=== PATIENT | female | born 1985 | race Caucasian/White ===

== ENCOUNTER 2019-03-31 20:20 | Emergency (ER) | payer BC, OTHER ==
[~2019-03-31] VITALS: Ht 170.2 cm; Wt 127.0 kg
[2019-03-31] MEDS ORDERED: LIDOCAINE 1% INJ 20 ML 20 ML VIAL ONE ×2 (20:23→20:24)
--- NOTE | 2019-03-31 20:23 | ED General ---
General Stated Complaint: LT HAND LAC History of Present Illness Date Seen by Provider: Mar 31, 2019 Time Seen by Provider: 20:23 Initial Comments Patient was doing some yard work when a knife slipped while she was cutting a wire sustained a laceration on the dorsal aspect of her left hand. Tetanus is unclear so was updated here. She has full function of her hand with no weakness and she also denies any numbness or tingling. Allergies and Home Medications Allergies Coded Allergies: No Known Drug Allergies (Unverified , 03/31/19) Patient Home Medication List Home Medication List Reviewed: Yes Review of Systems Review of Systems Constitutional: no symptoms reported Skin: other (laceration) All Other Systems Reviewed Negative Unless Noted: Yes Physical Exam Vital Signs Vital Signs - First Documented 03/31/19 20:31 Temp 98.8 Pulse 67 Resp 16 B/P (MAP) 151/84 (106) Pulse Ox 98 O2 Delivery Room Air Capillary Refill : Height, Weight, BMI Height: '" Weight: lbs. oz. kg; BMI Method: General Appearance: No Apparent Distress, WD/WN Extremity: Normal Capillary Refill, Normal Inspection, Normal Range of Motion, Other (5 out of 5 strength in thumb and index finger flexion and extension with no weakness.) Neurologic/Psychiatric: Alert (distal sensation is intact with no numbness), Oriented x3, No Motor/Sensory Deficits Skin: Normal Color, Warm/Dry, Other (approximate 2.5 cm linear laceration over the dorsal aspect of her hand and approximate mid metacarpal on index finger. Wound examined bloodless field and there is no deeper structures such as tendon visualized and there is no obvious foreign bodies.) Procedures/Interventions Wound Location: Upper Extremities Other Wound Location L hand Wound Length (cm): 2.5 Wound's Depth, Shape: superficial, linear Wound Explored: no foreign body removed Irrigated w/ Saline (ccs): 1000 Betadine Prep?: Yes Anesthesia: 1% Lidocaine Volume Anesthetic (ccs): 3 Wound Debrided: minimal Suture: Ethlion Suture Size: 5-0 Number of Sutures: 3 Layer Closure?: 1 Sterile Dressing Applied?: Yes Progress Wound prepped and draped in normal sterile fashion and was anesthetized with 3 cc of 1% lidocaine and then the wound was copiously irrigated and cleansed with chlorhexidine. 3 5-0 nylon sutures were placed with adequate closure and no immediate complications noted. Progress/Results/Core Measures Suspected Sepsis SIRS Temperature: Pulse: Respiratory Rate: Blood Pressure / Mean: Results/Orders My Orders Orders - JUAN CHRISTY DO Lidocaine 1% Inj 20 Ml (Xylocaine 1% Inj (03/31/19 20:30) Dipht,Pertuss(Acell),Tet Adult (Boostrix (03/31/19 20:30) Lidocaine 1% Inj 20 Ml (Xylocaine 1% Inj (03/31/19 20:23) Lidocaine 1% Inj 20 Ml (Xylocaine 1% Inj (03/31/19 20:24) Medications Given in ED Current Medications Medications Dose Ordered Sig/Ling Route Start Time Stop Time Status Last Admin Dose Admin Diphtheria/ Tetanus/Acell Pertussis 0.5 ml ONCE ONCE IM 03/31/19 20:30 03/31/19 20:31 DC 03/31/19 20:43 0.5 ML Lidocaine HCl 20 ml ONCE ONCE INJ 03/31/19 20:30 03/31/19 20:31 DC 03/31/19 20:41 20 ML Vital Signs/I&O 03/31/19 20:31 Temp 98.8 Pulse 67 Resp 16 B/P (MAP) 151/84 (106) Pulse Ox 98 O2 Delivery Room Air Capillary Refill : Progress Note : Progress Note Wound closed with no difficulty. Patient told signs to look for for infection and when to return. She was told to have the sutures removed in 7 days and come back sooner with any concerns. Patient aware and agreeable with plan and verbal ized understanding of the above instructions. Departure Impression Primary Impression: Hand laceration Qualified Codes: S61.412A - Laceration without foreign body of left hand, initial encounter Disposition: 01 HOME, SELF-CARE Condition: Stable JUAN CHRISTY DO Mar 31, 2019 20:23
--- OUTSIDE RECORDS SUMMARY | 2019-03-31 20:26 | XMS REPORT | Continuity of Care Document ---
Author Organization Unknown Address Unknown Allergies There is no data. Medications There is no data. Problems Date Dx Coded Attending Type Code Diagnosis Diagnosed By 02/02/2014 KARINA DDS, LISSETH B V72.2 DENTAL EXAMINATION 02/02/2014 KARINA DDS, LISSETH B V72.2 DENTAL EXAMINATION 02/02/2014 KARINA DDS, LISSETH B V72.2 DENTAL EXAMINATION 02/02/2014 KARINA DDS, LISSETH B V72.2 DENTAL EXAMINATION 03/24/2014 KARINA DDS, LISSETH B V72.2 DENTAL EXAMINATION 03/24/2014 KARINA DDS, LISSETH B V72.2 DENTAL EXAMINATION 03/24/2014 KARINA DDS, LISSETH B V72.2 DENTAL EXAMINATION 04/13/2014 KARINA DDS, LISSETH B V72.2 DENTAL EXAMINATION 04/13/2014 KARINA DDS, LISSETH B V72.2 DENTAL EXAMINATION 04/13/2014 KARINA DDS, LISSETH B V72.2 DENTAL EXAMINATION 05/13/2014 KARINA DDS, LISSETH B V72.2 DENTAL EXAMINATION 05/13/2014 KARINA DDS, LISSETH B V72.2 DENTAL EXAMINATION 06/09/2014 KARINA DDS, LISSETH B V72.2 DENTAL EXAMINATION Procedures Code Description [place] D0140 LIMIT ORAL EVAL PROBLM FOCUS 02/02/2014 D0220 INTRAORAL PERIAPICAL FIRST F 02/02/2014 D0230 INTRAORAL PERIAPICAL EA ADD 02/02/2014 D7140 EXTRACTION ERUPTED TOOTH/EXR 02/02/2014 D0099 NO CHARGE/FOLLOW UP 04/13/2014 D3320 END THXPY, BICUSPID TOOTH 05/13/2014 D2391 POST 1 SRFC RESINBASED CMPST 06/09/2014 D2392 POST 2 SRFC RESINBASED CMPST 06/09/2014 Results There is no data. Encounters ACCT No. Visit Date/Time Discharge Status Pt. Type Provider Facility Loc./Unit Complaint [id number] 06/09/2014 10:36:00 06/09/2014 23:59:59 [facility] LISSETH COLLINS DDS [id number] 05/13/2014 00:00:00 05/13/2014 23:59:59 [facility] LISSETH COLLINS DDS [id number] 04/13/2014 11:25:00 04/13/2014 23:59:59 [facility] Outpatient LISSETH COLLINS DDS [id number] 02/02/2014 09:53:00 02/02/2014 23:59:59 [facility] LISSETH COLLINS DDS
--- OUTSIDE RECORDS SUMMARY | 2019-03-31 20:26 | XMS REPORT ---
Author Author Migration, Doctor Organization [facility] Address Unknown Phone Unavailable Care Team Providers Care Psychiatry Adult Physician Name Role Phone Migration, Doctor Unavailable Unavailable PROBLEMS Type Condition ICD9-CM Code BCQ46-LP Code Onset Dates Condition Status SNOMED Code Problem Dental examination V72.2 Active [id number] ALLERGIES No Information ENCOUNTERS Encounter Location Date Diagnosis [facility] [address] [place] [address] Nov, [facility] [address] [place] [phone] Apr, Dental examination V72.2 [facility] [address] [place] [phone] Mar, Dental examination V72.2 [facility] [address] [place] [phone] Mar, Dental examination V72.2 [facility] [id number] [place] [phone] Jan, [facility] [id number] [place] [phone] Jan, [facility] [address] [place] [phone] Jun, [facility] [id number] [place] [phone] Jun, [facility] [id number] [place] [phone] May, [facility] [id number] [place] [phone] May, [facility] [address] [place] [address] Apr, [facility] [address] [facility] [id number] [place] [address] Apr, [facility] [address] [facility] [id number], [place] [address] Mar, [facility] [address] [facility] [id number], [place] [address] Jan, [facility] [address] [facility] [id number], [place] [address] Jan, IMMUNIZATIONS No Known Immunizations SOCIAL HISTORY Never Assessed REASON FOR VISIT EMR-[facility] PLAN OF CARE VITAL SIGNS MEDICATIONS Medication Instructions Dosage Frequency Start Date End Date Duration Status [place] 5-325 mg take 1 tablet by Oral route every 4-6 hours as needed for pain Jan, Active Diovan by oral route Jan, Active RESULTS No Results PROCEDURES No Known procedures INSTRUCTIONS MEDICATIONS ADMINISTERED No Known Medications MEDICAL (GENERAL) HISTORY Type Description Date Medical History HBP Medical History celiac Surgical History gallbladder removed 2003 Hospitalization History see surgical Hx
--- OUTSIDE RECORDS SUMMARY | 2019-03-31 20:26 | XMS REPORT ---
Author Author Migration, Doctor Organization [facility] Address Unknown Phone Unavailable Care Team Providers Care Software Architect Name Role Phone Migration, Doctor Unavailable Unavailable PROBLEMS Type Condition ICD9-CM Code YHL56-JB Code Onset Dates Condition Status SNOMED Code Problem Dental examination V72.2 Active [id number] ALLERGIES No Information ENCOUNTERS Encounter Location Date Diagnosis [facility] [address] [place] [address] Nov, [facility] [address] [place] [address] Apr, Dental examination V72.2 [facility] [address] [place] [address] Mar, Dental examination V72.2 [facility] [address] [place] [address] Mar, Dental examination V72.2 [facility] [id number] [place] [phone] Jan, [facility] [id number] [place] [phone] Jan, [facility] [id number] [place] [address] Jun, [facility] [id number] [place] [phone] Jun, [facility] [id number] [place] [phone] May, [facility] [id number] [place] [phone] May, [facility] [id number] [place] [phone] Apr, [facility] [address] [facility] [id number] [place] [address] Apr, [facility] [address] [facility] [id number], [place] [address] Mar, [facility] [address] [facility] [id number], [place] [address] Jan, [facility] [address] [facility] [id number], [place] [address] Jan, IMMUNIZATIONS No Known Immunizations SOCIAL HISTORY Never Assessed REASON FOR VISIT EMR-[facility] PLAN OF CARE VITAL SIGNS MEDICATIONS No Known Medications RESULTS No Results PROCEDURES No Known procedures INSTRUCTIONS MEDICATIONS ADMINISTERED No Known Medications MEDICAL (GENERAL) HISTORY Type Description Date Medical History HBP Medical History celiac Surgical History gallbladder removed 2003 Hospitalization History see surgical Hx
[2019-03-31] MEDS ORDERED: LIDOCAINE 1% INJ 20 ML 20 ML VIAL INJ ONE (20:30)
[2019-03-31] MEDS ORDERED: TETANUS,DIPTH,PERTUSS P/F (BOOSTRIX) 0.5 ML VIAL IM ONE (20:30)
[2019-03-31 20:57] VITALS: BP 126/61
== END 2019-03-31 20:57 | disposition home or self-care (01) ==
LOC: EDUNIT# 20:20 → ER FS 20:22
DX: S61.412A Laceration without foreign body of left hand, initial encounter (principal); W26.0XXA Contact with knife, initial encounter; Y92.096 Garden or yard of other non-institutional residence as the place of occurrence of the external cause
CPT/HCPCS: 90715

== ENCOUNTER 2021-05-31 14:47 | Emergency (ER) | payer BC ==
[~2021-05-31] VITALS: Ht 165 cm; Wt 128.0 kg
--- OUTSIDE RECORDS SUMMARY | 2021-05-31 15:00 | XMS REPORT | Clinical Summary ---
Author Author [facility] Organization [facility] Address Unknown Phone Unavailable Care Team Providers Care Barrel Repairer Name Role Phone Sanjiv Marti MD PCP Source Comments Some departments are not documenting in the electronic medical record. If you d o not see the information that you expected, contact Release of Information in [facility] [employer] Information Management department at [phone] for further assistan ce in locating additional records.[facility] Allergies No Known Active Allergies Medications End Date Status Medication Sig Dispensed Refills Start Date Active Calcium-Cholecalciferol Take by 0 (D3) 600 mg calcium- 200 mouth. unit cap Active L.ACID/L.CASEI/B.BIF/B.LO Take by 0 N/FOS (PROBIOTIC BLEND mouth. PO) Active TURMERIC ROOT EXTRACT PO Take by 0 mouth. Active metoprolol tartrate Take 25 mg by 0 (LOPRESSOR) 25 mg tablet mouth daily. Active VIT Take by 0 CALC,IRON,FOLIC ( mouth daily. VITAMIN PO) Active other medication Take 325 0 Doses by mouth daily. Natural calm magnesium 325 per 2 teaspoons Active other medication 1 Dose twice 0 daily. 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 Chronic pain of both knees 09/14/2016 Chronic midline low back pain without sciatica 09/14 Thyroid nodule 08/09/2016 Surgical History Surgery Date Site/Laterality Comments COLONOSCOPY HX CHOLECYSTECTOMY Medical History Medical History Date Comments Back pain Hypertension Thyroid nodule 08/09/2016 Family History Medical History Relation Name Comments High Cholesterol Father Hypertension Father Heart Disease Mother High Cholesterol Mother Hypertension Mother High Cholesterol Sister Hypertension Sister Relation Name Status Comments Father Alive Mother Alive Sister Social History Date Tobacco Use Types Packs/Day Years Used Never Smoker Comments Alcohol Use Standard Drinks/Week No 0 (1 standard drink = 0.6 o z pure alcohol) Sex Assigned at Date Recorded Not on file Last Filed Vital Signs Reading Time Taken Comments Vital Sign 127/69 09/14/2016 8:35 AM [facility] Blood Pressure 56 09/14/2016 8:35 AM [facility] Pulse 36.8 C (98.2 F) 08/08/2016 3:33 PM CDT Temperature 12 09/14/2016 8:35 AM [facility] Respiratory Rate 100% 08/08/2016 3:33 PM CDT Oxygen Saturation - - Inhaled Oxygen Concentration 87.1 kg (192 lb) 09/14/2016 8:35 AM [facility] Weight 167 cm (5' 5.75") 09/14/2016 8:35 AM [facility] Height 31.23 09/14/2016 8:35 AM [facility] Body Mass Index Plan of Treatment Health Maintenance Due Date Last Done Comments HIV SCREENING 1998 DTAP/TDAP VACCINES (1 - 2001 Tdap) PHYSICAL (COMPREHENSIVE) 2001 EXAM CERVICAL CANCER SCREENING 01/29/2004 INFLUENZA VACCINE 07/08/2021 HEPATITIS C SCREENING Completed 09/14/2016 Results Not on filefrom Last 3 Months Insurance Type Payer Benefit Subscriber ID Effective Phone Address Plan / Dates Group PPO BCBS [facility] [id number] 2015-P [facility] resjoseph BLAKE [phone] Advance Directives Patient Juvenile Justice Specialist Explanation Type Date Recorded Advance 07/31/2016 9:57 AM Directive/DPOA
--- NOTE | 2021-05-31 15:10 | ED General ---
General Stated Complaint: CP Source of Information: Patient Exam Limitations: No Limitations History of Present Illness Date Seen by Provider: May 31, 2021 Time Seen by Provider: 15:08 Initial Comments To ER with reports of chest pain constant for 48 hours worsened by activity described as a squeezing sensation on the left side of her chest. Was seen at [facility] and then went to [facility] where she was in the waiting room for an extended period of time before leaving and deciding to come here. She has had some shortness of breath with exertion as well. No fevers or chills or cough. She is also had some left lower extremity pain and swelling for a couple of months. She had Covid in September. Timing/Duration: 1-2 Days Severity: Moderate Associated Systoms: Weakness Allergies and Home Medications Allergies Coded Allergies: No Known Drug Allergies (Unverified , 03/31/19) Home Medications Metoprolol Succinate 100 Mg Tab.er.24h, 100 MG PO DAILY Prescribed by: JANICE HOLLAND on 05/31/21 0200 Patient Home Medication List Home Medication List Reviewed: Yes Review of Systems Review of Systems Constitutional: see HPI EENTM: see HPI Respiratory: see HPI, dyspnea on exertion, short of breath Cardiovascular: chest pain Genitourinary: no symptoms reported Musculoskeletal: see HPI Skin: no symptoms reported Psychiatric/Neurological: No Symptoms Reported Hematologic/Lymphatic: No Symptoms Reported Immunological/Allergic: no symptoms reported Past Isflpdw-Kdfwfu-Nwmwjy Hx Seasonal Allergies Seasonal Allergies: No Past Medical History Surgeries: No Respiratory: No Cardiac: No Neurological: No Genitourinary: No Gastrointestinal: No Musculoskeletal: No Endocrine: No HEENT: No Cancer: No Psychosocial: No Integumentary: No Blood Disorders: No Physical Exam Vital Signs Vital Signs - First Documented 05/31/21 14:54 Temp 36.7 Pulse 91 Resp 20 B/P (MAP) 149/107 (121) Pulse Ox 97 O2 Delivery Room Air Capillary Refill : Height, Weight, BMI Height: 5'7.00" Weight: 280lbs. oz. 127.999222ys; BMI Method:Stated General Appearance: No Apparent Distress, WD/WN, Obese Eyes: Bilateral Eye Normal Inspection, Bilateral Eye PERRL, Bilateral Eye EOMI Neck: Full Range of Motion, Normal Inspection Respiratory: Normal Breath Sounds, No Accessory Muscle Use, No Respiratory Distress Cardiovascular: Normal Peripheral Pulses, Tachycardia (Rate of 109 sinus) Gastrointestinal: Normal Bowel Sounds, Non Tender, Soft Extremity: Normal Capillary Refill, Normal Inspection Neurologic/Psychiatric: Alert, Oriented x3 Skin: Normal Color, Warm/Dry Procedures/Interventions Suture Size: 5-0 Progress/Results/Core Measures Suspected Sepsis SIRS Temperature: Pulse: Respiratory Rate: Laboratory Tests 05/31/21 15:05: White Blood Count 10.2 Blood Pressure / Mean: Laboratory Tests 05/31/21 15:05: Creatinine 0.78, INR Comment 1.0, Platelet Count 297, Total Bilirubin 1.1H Results/Orders Lab Results Laboratory Tests Test 05/31/21 15:05 Range/Units White Blood Count 10.2 4.3-11.0 10^3/uL Red Blood Count 5.09 3.80-5.11 10^6/uL Hemoglobin 14.3 11.5-16.0 g/dL Hematocrit 44 35-52 % Mean Corpuscular Volume 87 80-99 fL Mean Corpuscular Hemoglobin 28 25-34 pg Mean Corpuscular Hemoglobin Concent 32 32-36 g/dL Red Cell Distribution Width 13.2 10.0-14.5 % Platelet Count 297 130-400 10^3/uL Mean Platelet Volume 10.1 9.0-12.2 fL Immature Granulocyte % (Auto) 0 % Neutrophils (%) (Auto) 80 H 42-75 % Lymphocytes (%) (Auto) 15 12-44 % Monocytes (%) (Auto) 5 0-12 % Eosinophils (%) (Auto) 0 0-10 % Basophils (%) (Auto) 0 0-10 % Neutrophils # (Auto) 8.1 H 1.8-7.8 10^3/uL Lymphocytes # (Auto) 1.5 1.0-4.0 10^3/uL Monocytes # (Auto) 0.5 0.0-1.0 10^3/uL Eosinophils # (Auto) 0.0 0.0-0.3 10^3/uL Basophils # (Auto) 0.0 0.0-0.1 10^3/uL Immature Granulocyte # (Auto) 0.0 0.0-0.1 10^3/uL Prothrombin Time 13.6 12.2-14.7 SEC INR Comment 1.0 0.8-1.4 D-Dimer 0.32 0.00-0.49 UG/ML Sodium Level 138 135-145 MMOL/L Potassium Level 3.7 3.6-5.0 MMOL/L Chloride Level 107 98-107 MMOL/L Carbon Dioxide Level 21 21-32 MMOL/L Anion Gap 10 5-14 MMOL/L Blood Urea Nitrogen 9 7-18 MG/DL Creatinine 0.78 0.60-1.30 MG/DL Estimat Glomerular Filtration Rate 83 BUN/Creatinine Ratio 12 Glucose Level 99 70-105 MG/DL Calcium Level 10.0 8.5-10.1 MG/DL Corrected Calcium 9.6 8.5-10.1 MG/DL Total Bilirubin 1.1 H 0.1-1.0 MG/DL Aspartate Amino Transf (AST/SGOT) 21 5-34 U/L Alanine Aminotransferase (ALT/SGPT) 27 0-55 U/L Alkaline Phosphatase 81 40-136 U/L Troponin I < 0.028 <0.028 NG/ML C-Reactive Protein High Sensitivity 0.46 0.00-0.50 MG/DL Total Protein 8.7 H 6.4-8.2 GM/DL Albumin 4.5 3.2-4.5 GM/DL Procalcitonin 0.01 <0.10 NG/ML Serum Test, Qualitative NEGATIVE NEGATIVE My Orders Orders - JANICE HOLLAND APRN Fibrin Degradation Products (05/31/21 14:55) Ekg Tracing (05/31/21 14:55) Hcg,Qualitative Serum (05/31/21 14:55) Cbc With Automated Diff (05/31/21 14:55) Comprehensive Metabolic Panel (05/31/21 14:55) Protime With Inr (05/31/21 14:55) Ed Iv/Invasive Line Start (05/31/21 14:55) Hs C Reactive Protein (05/31/21 15:01) Procalcitonin (Pct) (05/31/21 15:01) Ct Angio Chest W (05/31/21 15:05) Troponin I (05/31/21 15:59) Iohexol Injection (Omnipaque 350 Mg/Ml 1 (05/31/21 16:15) Received Contrast (Hold Metformin- Contr (05/31/21 16:15) Ns (Ivpb) (Sodium Chloride 0.9% Ivpb Bag (05/31/21 16:15) Medications Given in ED Current Medications Medications Dose Ordered Sig/Ling Route Start Time Stop Time Status Last Admin Dose Admin Iohexol 100 ml ONCE ONCE IV 05/31/21 16:15 05/31/21 16:16 DC 05/31/21 16:05 88 ML Sodium Chloride 100 ml ONCE ONCE IV 05/31/21 16:15 05/31/21 16:16 DC 05/31/21 16:05 80 ML Vital Signs/I&O 05/31/21 14:54 Temp 36.7 Pulse 91 Resp 20 B/P (MAP) 149/107 (121) Pulse Ox 97 O2 Delivery Room Air Capillary Refill : Diagnostic Imaging Diagonstic Imaging: Xray Plain Films/CT/US/NM/MRI: chest Comments NAME: KIM PEREIRA [facility] REC#: [id number] PT STATUS: REG ER : 1985 PHYSICIAN: JANICE HOLLAND APRN ADMIT DATE: 05/31/21/ER Draft Date of Exam:05/31/21 CT ANGIO CHEST W PROCEDURE: CT angiography of the chest with contrast. TECHNIQUE: Multiple contiguous axial images were obtained through the chest after uneventful bolus administration of intravenous contrast. 3D reconstructed CTA MIP acquisitions were also performed. Auto Exposure Controls were utilized during the CT exam to meet ALARA standards for radiation dose reduction. INDICATION: Shortness of breath. Patient also has left leg pain and swelling. No prior studies are available for comparison. Evaluation of pulmonary arterial system shows no definite evidence of thromboembolism. No definite central, lobar segmental emboli are seen. The thoracic aorta is normal caliber. No dissection is seen. No pericardial or pleural fluid. No pulmonary infiltrates, nodules or masses are seen. The upper abdomen is unremarkable. IMPRESSION: No evidence of pulmonary embolism or thoracic aortic dissection. No acute features detected. Dictated on workstation # [id number] Dict: 05/31/21 1615 Trans: 05/31/21 1659 [id number] [id number] Interpreted by: MAGDALENA MARIN MD Electronically signed by: Departure Communication (Admissions) EKG shows sinus tachycardia rate of 109 normal intervals no ectopy no ST segment change Communication (PCP) 6340-She has a negative troponin despite chest pain ongoing constant for 48 hours. A single troponin as such is sufficient to rule out acute coronary syndrome. We will have her follow-up with primary care for referral to card iology or pulmonology as they see fit. She states that she takes metoprolol 100 mg daily she is already had today's dose but is out. BP 130/90 with HR 90s. . I'll send in some oriented to Joaquin Katz per her request. 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 As such I'll give her a note to be off until she is released to go back by [facility]. Impression Primary Impression: Chest pain Additional Impression: Exertional dyspnea Disposition: HOME, SELF-CARE Condition: Stable Departure-Patient Inst. Decision time for Depature: 16:34 Referrals: [facility] (PCP/Family) Primary Care Physician Patient Instructions: Shortness of Breath, Adult ED Add. Discharge Instructions: 1. Follow-up with [facility]. Return to ER for any concerns. Scripts Metoprolol Succinate (Metoprolol Succinate) 100 Mg Tab.er.24h 100 MG PO DAILY, #30 TAB Prov: JANICE HOLLAND APRN 05/31/21 Work/School Note: Work Release Form Date Seen in the Emergency Department: May 31, 2021 Restrictions: Need Release from Doctor Copy Copies To 1: WILLI SAMSON PETER J APRN May 31, 2021 15:10
[2021-05-31 15:19] LABS: BASOPHILS % (AUTO) 0 % (0-10); EOSINOPHILS % (AUTO) 0 % (0-10); HEMATOCRIT 44 % (35-52); HEMOGLOBIN 14.3 g/dL (11.5-16.0); LYMPHOCYTES # (AUTO) 1.5 10^3/uL (1.0-4.0); LYMPHOCYTES % (AUTO) 15 % (12-44); MEAN CORPUSCULAR HEMOGLOBIN 28 pg (25-34); MEAN CORPUSCULAR HGB CONC 32 g/dL (32-36); MEAN CORPUSCULAR VOLUME 87 fL (80-99); MEAN PLATELET VOLUME 10.1 fL (9.0-12.2); MONOCYTES # (AUTO) 0.5 10^3/uL (0.0-1.0); MONOCYTES % (AUTO) 5 % (0-12); NEUTROPHILS # (AUTO) 8.1 10^3/uL (1.8-7.8); NEUTROPHILS % (AUTO) 80 % (42-75); PLATELET COUNT 297 10^3/uL (130-400); WHITE BLOOD COUNT 10.2 10^3/uL (4.3-11.0)
[2021-05-31 15:26] LABS: ALBUMIN 4.5 GM/DL (3.2-4.5); POTASSIUM 3.7 MMOL/L (3.6-5.0)
[2021-05-31 15:29] LABS: TOTAL PROTEIN 8.7 GM/DL (6.4-8.2)
[2021-05-31 15:30] LABS: BILIRUBIN,TOTAL 1.1 MG/DL (0.1-1.0); FIBRIN DEGRADATION PRODUCTS 0.32 UG/ML (0.00-0.49); PROTHROMBIN TIME PATIENT 13.6 SEC (12.2-14.7)
[2021-05-31 15:32] LABS: CREATININE SERUM 0.78 MG/DL (0.60-1.30)
[2021-05-31] MEDS ORDERED: IOHEXOL 350 MG/ML 100 ML (OMNIPAQUE 350) VIAL IV ONE (16:15)
[2021-05-31] MEDS ORDERED: HOLD METFORMIN - RECEIVED CONTRAST 20 ML VIAL IV SCH (16:15)
[2021-05-31] MEDS ORDERED: NS 100 ML (IVPB) BAG IV ONE (16:15)
--- NOTE | 2021-05-31 16:53 | Diagnostic Imaging Report ---
PROCEDURE: CT angiography of the chest with contrast. TECHNIQUE: Multiple contiguous axial images were obtained through the chest after uneventful bolus administration of intravenous contrast. 3D reconstructed CTA MIP acquisitions were also performed. Auto Exposure Controls were utilized during the CT exam to meet ALARA standards for radiation dose reduction. INDICATION: Shortness of breath. Patient also has left leg pain and swelling. No prior studies are available for comparison. Evaluation of pulmonary arterial system shows no definite evidence of thromboembolism. No definite central, lobar segmental emboli are seen. The thoracic aorta is normal caliber. No dissection is seen. No pericardial or pleural fluid. No pulmonary infiltrates, nodules or masses are seen. The upper abdomen is unremarkable. IMPRESSION: No evidence of pulmonary embolism or thoracic aortic dissection. No acute features detected. Dictated by: Dictated on workstation # [id number]
[2021-05-31] MEDS ORDERED: MTP100TCR PO (17:08)
[2021-05-31 17:23] VITALS: BP 120/86
== END 2021-05-31 17:30 | disposition home or self-care (01) ==
LOC: EDUNIT# 14:47 → ER 14:49
DX: R07.9 Chest pain, unspecified (principal); R06.09 Other forms of dyspnea; E66.9 Obesity, unspecified; Z86.16 Personal history of COVID-19; Z68.45 Body mass index [BMI] 70 or greater, adult
CPT/HCPCS: 36415; 71275; 80053; 84145; 84484; 84703; 85025; 85379; 85610; 86141; 93005